=== PATIENT | male | born 1990 | race Caucasian/White ===

== ENCOUNTER 2017-09-14 22:01 | Emergency (ER) | payer SELFPAY ==
[~2017-09-14] VITALS: Ht 172.7 cm; Wt 98.0 kg
[2017-09-14 22:20] VITALS: BP 142/86; PULSE 85; RESP 16; TEMP 97.9; O2SAT 97
--- NOTE | 2017-09-14 22:50 | PD ---
HPI Chief Complaint: Altered Mental Status Time Seen by Provider: 22:49 Travel History International Travel<30 days: No Contact w/Intl Traveler<30days: No Traveled to known affect area: No History of Present Illness HPI Patient is a 27-year-old male who was having a headache at home and he developed a nosebleed. He's to it up and then felt dizzy lightheaded and he fell to the ground he has no injury he just has nose bleeding every day he said for the last 2 weeks. He has no injury that he was drinking 6 beers according to his he says he only had one. He also was given Narcan and he got more awake according to paramedics. Patient denies taking any intoxicants substance besides alcohol. In the ER he is awake alert vitals are normal PFS Past Medical History Medical History: Denies Significant Hx Influenza Vaccination: No Past Surgical History Surgical History: No Previous Surgery Social History Alcohol Use: Yes Tobacco Use: No Substance Use: No Allergies-Medications (Allergen,Severity, Reaction): Coded Allergies: No Known Allergies (Unverified , 09/14/17) Reported Meds & Prescriptions Reported Meds & Active Scripts Active No Active Prescriptions or Reported Medications Physical Exam Narrative GENERAL: sleepy but rousable non toxic appearing SKIN: Warm and dry. HEAD: Atraumatic. Normocephalic. EYES: Pupils equal and round. No scleral icterus. No injection or drainage. ENT: No nasal bleeding or discharge. Mucous membranes pink and moist. NECK: Trachea midline. No JVD. CARDIOVASCULAR: Regular rate and rhythm. RESPIRATORY: No accessory muscle use. Clear to auscultation. Breath sounds equal bilaterally. GASTROINTESTINAL: Abdomen soft, non-tender, nondistended. Hepatic and splenic margins not palpable. MUSCULOSKELETAL: Extremities without clubbing, cyanosis, or edema. No obvious deformities. NEUROLOGICAL: Awake and alert. No obvious cranial nerve deficits. Motor grossly within normal limits. Five out of 5 muscle strength in the arms and legs. Normal speech. PSYCHIATRIC: Appropriate mood and affect; insight and judgment normal. Data Data Last Documented VS Vital Signs Date Time Temp Pulse Resp B/P (MAP) Pulse Ox O2 Delivery O2 Flow Rate FiO2 09/15/17 02:24 77 18 140/75 (96) 97 09/14/17 22:20 97.9 Orders Orders Complete Blood Count With Diff (09/14/17 22:32) Comprehensive Metabolic Panel (09/14/17 22:32) Alcohol (Ethanol) (09/14/17 22:32) Drug Screen, Random Urine (09/14/17 22:32) Knee, Complete (4vws) (09/14/17 ) Sodium Chlor 0.9% 1000 Ml Inj (Ns 1000 M (09/14/17 23:15) Ct Brain W/O Iv Contrast(Rout) (09/15/17 ) Ed Discharge Order (09/15/17 02:18) Labs Laboratory Tests Test 09/14/17 22:30 White Blood Count 11.3 TH/MM3 Red Blood Count 4.97 MIL/MM3 Hemoglobin 14.7 GM/DL Hematocrit 42.9 % Mean Corpuscular Volume 86.2 FL Mean Corpuscular Hemoglobin 29.6 PG Mean Corpuscular Hemoglobin Concent 34.4 % Red Cell Distribution Width 12.7 % Platelet Count 197 TH/MM3 Mean Platelet Volume 10.0 FL Neutrophils (%) (Auto) 51.5 % Lymphocytes (%) (Auto) 33.6 % Monocytes (%) (Auto) 10.2 % Eosinophils (%) (Auto) 4.2 % Basophils (%) (Auto) 0.5 % Neutrophils # (Auto) 5.9 TH/MM3 Lymphocytes # (Auto) 3.8 TH/MM3 Monocytes # (Auto) 1.2 TH/MM3 Eosinophils # (Auto) 0.5 TH/MM3 Basophils # (Auto) 0.1 TH/MM3 CBC Comment DIFF FINAL Differential Comment Blood Urea Nitrogen 14 MG/DL Creatinine 0.90 MG/DL Random Glucose 112 MG/DL Total Protein 7.6 GM/DL Albumin 4.0 GM/DL Calcium Level 8.6 MG/DL Alkaline Phosphatase 111 U/L Aspartate Amino Transf (AST/SGOT) 53 U/L Alanine Aminotransferase (ALT/SGPT) 106 U/L Total Bilirubin 0.4 MG/DL Sodium Level 141 MEQ/L Potassium Level 3.5 MEQ/L Chloride Level 107 MEQ/L Carbon Dioxide Level 22.9 MEQ/L Anion Gap 11 MEQ/L Estimat Glomerular Filtration Rate 103 ML/MIN Ethyl Alcohol Level 77 MG/DL [facility] Medical Decision Making Medical Screen Exam Complete: Yes Emergency Medical Condition: Yes Interpretation(s) EKG is normal sinus rhythm with a right bundle branch block at a rate of 85 Differential Diagnosis Syncope versus near syncope versus alcohol intoxication versus seizure Narrative Course Patient's orthostatics are within normal limits his alcohol comes back at 77 mg/ dL patient is awake and alert observed in the ER for 4 hours EKG is a normal sinus rhythm with a right bundle branch block heart rate of 85 give him a liter of fluid review his labs and examine his nose there is no acute bleeding and his H&H is within normal limits no signs of anemia no signs of volume depletion he is discharged to follow-up with an outpatient I do a CAT scan of his head and x-ray of his knee from the fall and they are negative. Diagnosis Primary Impression: Syncopal episodes Qualified Codes: R55 - Syncope and collapse Additional Impression: Epistaxis Patient Instructions: Epistaxis (DC), General Instructions Scripts No Active Prescriptions or Reported Meds Disposition: 01 DISCHARGE HOME Condition: Good Marques Martinez MD Sep 14, 2017 22:50
[2017-09-14 22:55] LABS: AUTOMATED NEUTROPHIL # 5.9 TH/MM3 (1.8-7.7); BASOPHIL # 0.1 TH/MM3 (0-0.2); BASOPHIL % 0.5 % (0.0-2.0); EOSINOPHIL # 0.5 TH/MM3 (0-0.4); EOSINOPHIL % 4.2 % (0.0-4.0); HEMATOCRIT 42.9 % (39.0-51.0); HEMOGLOBIN 14.7 GM/DL (13.0-17.0); LYMPH % 33.6 % (9.0-44.0); LYMPHOCYTE # 3.8 TH/MM3 (1.0-4.8); MEAN CELL VOLUME 86.2 FL (80.0-100.0); MEAN CORPUSCULAR HEMOGLOBIN 29.6 PG (27.0-34.0); MEAN CORPUSCULAR HGB CONC 34.4 % (32.0-36.0); MONO % 10.2 % (0.0-8.0); MONOCYTE # 1.2 TH/MM3 (0-0.9); NEUT % 51.5 % (16.0-70.0); PLATELET COUNT 197 TH/MM3 (150-450); RED BLOOD COUNT 4.97 MIL/MM3 (4.50-5.90); RED CELL DISTRIBUTION WIDTH 12.7 % (11.6-17.2); WHITE BLOOD COUNT 11.3 TH/MM3 (4.0-11.0)
[2017-09-14] MEDS ORDERED: SODIUM CHLOR 0.9% 1000 ML INJ 1,000 ML IV ONE (23:15)
[2017-09-14 23:24] LABS: ALKALINE PHOSPHATASE 111 U/L (45-117); ALT (GPT) 106 U/L (12-78); TOTAL BILIRUBIN ADULT 0.4 MG/DL (0.2-1.0); TOTAL PROTEIN 7.6 GM/DL (6.4-8.2)
[2017-09-14 23:25] LABS: AST (GOT) 53 U/L (15-37); BICARBONATE 22.9 MEQ/L (21.0-32.0); BLOOD UREA NITROGEN 14 MG/DL (7-18); CALCIUM 8.6 MG/DL (8.5-10.1); CHLORIDE 107 MEQ/L (98-107); GLOMERULAR FILTRATION RATE 103 ML/MIN (>89); GLUCOSE,RANDOM 112 MG/DL (74-106); SODIUM (NA) 141 MEQ/L (136-145)
[2017-09-14 23:53] VITALS: BP_SYST 128; BP_SYST 132; BP_SYST 141; BP_DIAS 67; BP_DIAS 75; RESP 20
--- NOTE | 2017-09-14 23:58 | RADRPT ---
EXAM DATE/TIME: 09/14/2017 23:28 [facility] COMPARISON: No previous studies available for comparison. INDICATIONS : Patients family member states patient fell on left knee tonight during LOC. Left knee pain. MEDICAL HISTORY : None. SURGICAL HISTORY : None. ENCOUNTER: Initial ACUITY: 1 day PAIN SCORE: 5/10 LOCATION: Left Knee FINDINGS: 4 views of left knee. Bone alignment within normal limits. No evidence of fracture. No evidence of j oint narrowing. No evidence of joint effusion. CONCLUSION: No evidence of fracture. Chauncey Brown MD on September 14, 2017 at 23:54 Board Certified Radiologist. This report was verified electronically.
--- NOTE | 2017-09-15 00:57 | RADRPT ---
EXAM DATE/TIME: 09/15/2017 00:27 [facility] COMPARISON: No previous studies available for comparison. INDICATIONS : Altered mental status. RADIATION DOSE: 56.35 CTDIvol (mGy) MEDICAL HISTORY : None SURGICAL HISTORY : None. ENCOUNTER: Initial ACUITY: 1 day PAIN SCALE: Non-responsive LOCATION: cranial TECHNIQUE: Multiple contiguous axial images were obtained of the head. Using automated exposure control and adj ustment of the mA and/or kV according to patient size, radiation dose was kept as low as reasonably a chievable to obtain optimal diagnostic quality images. DICOM format image data is available electro nically for review and comparison. FINDINGS: CEREBRUM: The ventricles are normal for age. No evidence of midline shift, mass lesion, hemorrhage or acute in farction. No extra-axial fluid collections are seen. POSTERIOR FOSSA: The cerebellum and brainstem are intact. The 4th ventricle is midline. The cerebellopontine angle i s unremarkable. EXTRACRANIAL: The visualized portion of the orbits is intact. SKULL: The calvaria is intact. No evidence of skull fracture. CONCLUSION: No acute intracranial findings. Chauncey Brown MD on September 15, 2017 at 0:51 Board Certified Radiologist. This report was verified electronically.
[2017-09-15 02:24] VITALS: BP 140/75
--- NOTE | 2017-09-16 10:08 | EKG ---
Date Performed: 09/14/2017 Time Performed: 22:20:55 PTAGE: 27 years EKG: Sinus rhythm INDETERMINATE AXIS RIGHT BUNDLE BRANCH BLOCK ABNORMAL ECG NO PREVIOUS TRACING DOCTOR: Sade Mayberry Interpretating Date/Time 09/16/2017 10:07:53
== END 2017-09-15 02:30 | disposition home or self-care (01) ==
LOC: NEPE 22:01
DX: R55 Syncope and collapse (principal); R04.0 Epistaxis; F10.129 Alcohol abuse with intoxication, unspecified; Y90.3 Blood alcohol level of 60-79 mg/100 ml
CPT/HCPCS: 70450; 73564; 80053; 80307; 85025; 93005; 96360; 99285; J7030